=== PATIENT | female | born 1960 | race African-American/Black ===

== ENCOUNTER → 2019-03-17 | Outpatient (CLI) | payer MEDICARE, MEDICAID ==
[~2019-03-17] MED LIST: AMLO5TAB10 PO; ATOR20TA58 PO; CALC-98 PO; CITA20TA9 PO; GABA600T7 PO; LOSA100T14 PO; METH-38 PO; METH750T2 PO; MULT1TAB52 PO; OXYC1TAB15 PO; OXYC1TAB22 PO; REGADENOSON 0.4 MG/5 ML DISP.SYRIN. IV ONE; SENN1TAB99 PO; VARE1TAB21 PO; ZOLP5TAB5 PO
--- NOTE | 2019-03-17 12:19 | RAD ---
MR#: [id number] Date of Study: 03/17/2019 Ordering Physician: CATHERINE AYALA, Referring Physician: PEGGY SEVERINO Tech: RT Essie Taylor) (N) APPROVED REPORT Test Type: Pharmacological Stress Nurse/Tech: Liudmila Pierre R.N. Test Indications: c/p, dizziness Cardiac History: htn, smoker Medications: See Electronic Medical Record Medical History: See Electronic Medical Record Resting ECG: SR w/ inverted T waves in leads II,III, AVF, V3-V6 Resting Heart Rate: SR bpm Resting Blood Pressure: 93/60mmHg Pretest Chest Pain: No chest pain Nurse/Tech Notes S1S2, lungs CTA Consent: The procedure was explained to the patient in lay terms. Informed consent was witnessed. Lee eout was entered into [employer]. History and Stress Test performed by RT Essie Taylor) (N) Pharm. Details Pharmacologic stress testing was performed using 0.4mg per 5ml of regadenoson given intravenously ove r 7-10 seconds. Stress Symptoms Dyspnea POST EXERCISE Reason for Termination: Infusion complete Max HR: 91 bpm Max Blood Pressure: 91mmHg Blood Pressure response to exercise: Normal blood pressure response during stress. Heart Rate response to exercise: wnl Chest Pain: No. Arrhythmia: No. ST Change: No. INTERPRETATION Stress EKG Conclusion: The resting EKG shows a sinus rhythm and nonspecific T-wave changes. The stress EKG shows no significant changes from baseline. No EKG evidence of stressed induced ischemia. Imaging Protocol IMAGE PROTOCOL: Rest Tc-99m/stress Tc-99m 1 day Rest: Stress: Viability: Radiopharm.Tc99m HqphpdikiUj00m Sestamibi Dose10.6mCi 33mCi Duration 13min. 13min. Img Date 03/17/2019 03/17/2019 Inj-Img Zgxy78iyf. 60min. Rest Admin Site:IV - Left AntecubitalAdministrator:RT Essie Taylor)(N) Stress Admin Site: IV - Left AntecubitalAdministrator: SELAM Babin STRESS DATA End Diast. Vol.77.0mlLVEDV index BSA42.0ml End Syst. Vol.21.0mlLVESV index BSA11.0ml Myocardial Xkhq979.0gEject. Hcwchntx40.0% Stress Scores Regional WT0.00Summed WT0.00 Regional WM0.00Summed WM5.00 LV Perfusion The stress scans showed no significant defects. The rest scans showed no significant defects. Nuclear imaging shows no reversible ischemia or infarct. Wall Motion Normal left ventricular systolic function. No regional wall motion abnormalities. LV ejection fractio n of greater than 70%. LV Perf. Quant 17 Seg. SSS0.00 17 Seg. SRS0.00 17 Seg. SDS0.00 Stress Defect Extent (% LAD)0.00Rest Defect Extent (% LAD)0.00Rev. Defect Extent (% LAD)0.00 Stress Defect Extent (% LCX) 0.00Rest Defect Extent (% LCX)0.00Rev. Defect Extent (% LCX)0.00 Stress Defect Extent (% RCA)0.00Rest Defect Extent (% RCA)0.00Rev. Defect Extent (% RCA)0.00 Stress Defect Extent (% BELKIS)0.00Rest Defect Extent (% BELKIS)0.00Rev. Defect Extent (% BELKIS)0.00 Conclusion 1. No EKG evidence of stressed induced ischemia. 2. Nuclear imaging shows no reversible ischemia or infarct. 3. Normal left ventricular systolic function with an ejection fraction of greater than 70%. 4. Low risk Lexiscan nuclear stress test. Signed by : Catherine Ayala MD Electronically Approved : 03/17/2019 12:18:57
== END | disposition home or self-care (01) ==
LOC: NM 08:42
PROVIDERS: ATTEND Internal Medicine Cardiovascular Disease
DX: R07.9 Chest pain, unspecified (principal); R42 Dizziness and giddiness; I10 Essential (primary) hypertension; F17.200 Nicotine dependence, unspecified, uncomplicated
CPT/HCPCS: 78452; 93017; A9500; J2785

== ENCOUNTER → 2019-04-20 | Outpatient (CLI) | payer MEDICARE, MEDICAID ==
[~2019-04-20] MED LIST changes: -REGADENOSON 0.4 MG/5 ML DISP.SYRIN. IV ONE
[2019-04-20 16:20] LABS: BASO % 1 % (0-3); EOS # 0.1 x10^3/uL (0.0-0.7); EOS % 2 % (0-3); HEMATOCRIT 44.4 % (36.0-47.0); HEMOGLOBIN 14.9 g/dL (12.0-15.5); LYMPH # 1.6 x10^3/uL (1.0-4.8); LYMPH % 35 % (24-48); MEAN CORPUSCULAR HEMOGLOBIN 29 pg (25-35); MEAN CORPUSCULAR HGB CONC 33 g/dL (31-37); MEAN CORPUSCULAR VOLUME 87 fL (79-100); MONO # 0.7 x10^3/uL (0.0-1.1); MONO % 16 % (0-9); NEUT # 2.1 x10^3uL (1.8-7.7); NEUT % 46 % (31-73); PLATELET COUNT 243 x10^3/uL (140-400); RED BLOOD COUNT 5.08 x10^6/uL (3.50-5.40); RED CELL DISTRIBUTION WIDTH 13.7 % (11.5-14.5); WHITE BLOOD COUNT 4.6 x10^3/uL (4.0-11.0)
[2019-04-20 16:31] LABS: PROTHROMBIN TIME PATIENT 12.5 SEC (11.7-14.0)
[2019-04-20 16:48] LABS: CALCIUM 9.4 mg/dL (8.5-10.1); CREATININE 0.8 mg/dL (0.6-1.0); GFR 88.8; POTASSIUM 3.4 mmol/L (3.5-5.1); TOTAL BILIRUBIN 0.3 mg/dL (0.2-1.0)
--- NOTE | 2019-04-21 09:47 | EKG ---
[facility] [address] [place] [address] Test Date: 2019-04-20 Test Time: 16:07:45 Pat Name: LEA HALL Department: Room: Gender: F Machine Installer: CAROL : 1960 Requested By: EVITA CHRISTIANSON Order Number: [id number] Reading MD: Roney Sky MD Measurements Intervals [place] Rate: 57 P: 64 SD: 182 QRS: -19 QRSD: 86 T: 24 QT: 432 QTc: 424 Interpretive Statements SINUS RHYTHM Electronically Signed On 04-28-2019 11:43:35 CDT by Roney Sky MD
== END | disposition home or self-care (01) ==
LOC: SURGPAT 13:26
PROVIDERS: ATTEND Neurological Surgery
DX: Z01.818 Encounter for other preprocedural examination (principal); M96.0 Pseudarthrosis after fusion or arthrodesis; M43.16 Spondylolisthesis, lumbar region; M48.061 Spinal stenosis, lumbar region without neurogenic claudication; I10 Essential (primary) hypertension
CPT/HCPCS: 36415; 80053; 83036; 85025; 85610; 85730; 87641; 93005

== ENCOUNTER → 2019-06-23 | Outpatient (CLI) | payer MEDICARE, MEDICAID ==
[2019-05-07 11:00] VITALS: BP 118/66
--- NOTE | 2019-06-24 08:52 | RAD ---
EXAM: MAMMO AICHA SCREENING BILATERAL HISTORY: routine screening evaluation. COMPARISON: Prior mammographic imaging 02/02/2015, 07/25/2017 Bilateral CC and MLO views of the breasts were performed. Bilateral breast tomosynthesis was performed in CC and MLO projections. This study was interpreted with the benefit of Computerized Aided Detection (CAD). Breast Density: The breast parenchyma is heterogeneously dense, which could reduce sensitivity of mammography. Breast parenchyma level C. FINDINGS: The parenchymal pattern appears stable. Benign calcifications are present. No suspicious masses, microcalcifications or architectural distortion is present to suggest malignancy in either breast. The visualized axillae are unremarkable. IMPRESSION: No mammographic evidence of malignancy. BI-RADS CATEGORY: 2 BENIGN FINDING(S) RECOMMENDED FOLLOW-UP: 12M 12 MONTH FOLLOW-UP Annual screening mammography is recommended, unless clinically indicated sooner based on symptoms or change in physical exam. PQRS compliance statement: Patient information was entered into a reminder system with a target due date for the next mammogram. Mammography is a sensitive method for finding small breast cancers, but it does not detect them all and is not a substitute for careful clinical examination. A negative mammogram does not negate a clinically suspicious finding and should not result in delay in biopsying a clinically suspicious abnormality. "Our facility is accredited by the [employer] Mammography Program." [employer]
== END | disposition home or self-care (01) ==
LOC: MAMMO 10:37
PROVIDERS: ATTEND Family Medicine
DX: Z12.31 Encounter for screening mammogram for malignant neoplasm of breast (principal); N64.89 Other specified disorders of breast
CPT/HCPCS: 77063; 77067